=== PATIENT | female | born 1950 ===

== ENCOUNTER → 2019-05-21 | Outpatient (CLI) | payer MEDICARE, OTHER ==
[~2019-05-21] MED LIST: CALC500T6 PO; CITA-145 PO; GABA-547 PO; LACT1CAP6 PO; LEVO75TA73 PO; OMEG-11 PO
[2019-05-21 11:29] LABS: PLATELET COUNT, AUTOMATED 252 K/uL (150-450)
--- NOTE | 2019-05-21 11:44 | EKG ---
FACILITY: PATIENT NAME: RAE GOULD : [id number] MR: [id number] V: [id number] EXAM DATE: ORDERING PHYSICIAN: ROSALINDA BRIAN TECHNOLOGIST: RADHA YI Test Reason : CHEST PAIN Blood Pressure : / mmHG Vent. Rate : 051 BPM Atrial Rate : 051 BPM P-R Int : 160 ms QRS Dur : 080 ms QT Int : 424 ms P-R-T Axes : 045 015 -21 degrees QTc Int : 390 ms Sinus bradycardia Nonspecific ST and T wave abnormality Abnormal ECG No previous ECGs available Referred By: SNEHAL Confirmed By:
== END ==
LOC: LAB 10:56
PROVIDERS: ATTEND Nurse Practitioner Primary Care
DX: R07.9 Chest pain, unspecified (principal)
CPT/HCPCS: 36415; 82040; 82247; 82310; 82374; 82435; 82565; 82947; 84075; 84132; 84155; 84295; 84450; 84460; 84484; 84520; 85025

== ENCOUNTER → 2019-06-11 | Outpatient (CLI) | payer MEDICARE, OTHER ==
[~2019-06-11] MED LIST changes: +CYAN100058 PO
--- NOTE | 2019-06-11 11:38 | RADIOLOGY IMAGING REPORT ---
[place] [facility] [place] Kendra Zayas : 1950 MR: [id number] V: [id number] EXAM DATE: ORDERING PHYSICIAN: TIM WHITAKER TECHNOLOGIST: Location: [facility] - [place] Patient: Kendra Zayas : 1950 Visit/Account:[id number] Date of Sevice: 06/11/2019 Exam type: CHEST PA LAT History: Chest heaviness two weeks ago, follow-up from abnormal EKG Comparison: None. Findings: The lungs are free of acute effusions, infiltrates or edema. This mild increased AP diameter chest w hich can be seen with hyperinflation . On the lateral view there suggestion of a small nodular densi ty projecting in the anterior aspect of the mid thorax. This is not definite seen on the PA view. T his could simply represent superimposed shadow although small nodule not excluded Cardiac silhouette is normal in size. The trachea is in midline. There are mild spondylotic changes of the thoracic s pine. IMPRESSION: 1. There is mild increased AP diameter chest which can be seen with hyperinflation. No evidence of acute pulmonary infiltrates On the lateral view there suggestion of a small nodular density along the anterior aspect of the mid thorax which could represent a small superimposed shadow although small nodule not excluded. Dependi ng upon the degree of clinical concern short-term interval follow-up chest or chest CT may be helpful Report Dictated By: July Link MD at 06/11/2019 11:26 AM Report E-Signed By: July Link MD at 06/11/2019 11:29 AM WSN:[email or web address]
== END ==
LOC: LAB 10:55
PROVIDERS: ATTEND Emergency Medicine
DX: R07.9 Chest pain, unspecified (principal)
CPT/HCPCS: 36415; 71046; 82306; 82607

== ENCOUNTER → 2019-06-18 | Outpatient (CLI) | payer MEDICARE, OTHER ==
--- NOTE | 2019-06-18 14:36 | RADIOLOGY IMAGING REPORT ---
FACILITY: [facility] - [place] PATIENT NAME: Kendra Zayas : 1950 MR: [id number] V: [id number] EXAM DATE: ORDERING PHYSICIAN: TIM WHITAKER TECHNOLOGIST: Location: [facility] Patient: Kendra Zayas : 1950 Visit/Account:[id number] Date of Sevice: 06/18/2019 CHEST PA LAT HISTORY: Abnormal chest x-ray. History of smoking 40 years ago. No recent sickness or complaints at t his time. COMPARISON: 06/11/2019. TECHNIQUE: PA and lateral views of the chest. FINDINGS: PULMONARY/PLEURA: Lungs are clear. Nodular density in the retrosternal space is unchanged. There is n o pneumothorax or pleural effusion. CARDIOMEDIASTINAL: Cardiac and mediastinal silhouettes are within normal limits. BONES/SOFT TISSUES: No acute osseous abnormality. The visible abdomen is normal. IMPRESSION: 1. Persistent nodular density in the retrosternal space may be a calcified granuloma versus vessel on end. More worrisome process is possible, but felt less likely. If patient has remote chest x-rays, s uggest comparison be made to assess for long-term stability. If none are available, follow-up chest x -ray is suggested in 3-6 months to assess for stability. Alternatively, depending on clinical concern , chest CT could be obtained for further evaluation. Report Dictated By: Nathaly Medina at 06/18/2019 2:23 PM Report E-Signed By: Nathaly Medina at 06/18/2019 2:27 PM WSN:[id number]
== END ==
LOC: RAD 12:49
PROVIDERS: ATTEND Emergency Medicine
DX: R93.89 Abnormal findings on diagnostic imaging of other specified body structures (principal)
CPT/HCPCS: 71046

== ENCOUNTER → 2019-06-21 | Outpatient (CLI) | payer MEDICARE, OTHER ==
--- NOTE | 2019-06-21 13:25 | RADIOLOGY IMAGING REPORT ---
FACILITY: [facility] - [place] PATIENT NAME: Kendra Zayas : 1950 MR: [id number] V: [id number] EXAM DATE: ORDERING PHYSICIAN: TIM WHITAKER TECHNOLOGIST: Location: [facility] Patient: Kendra Zayas : 1950 Visit/Account:[id number] Date of Sevice: 06/21/2019 CT CHEST W/O CONTRAST History: 69-year-old female with abnormal density in the retrosternal region noted on recent chest x- ray. Evaluate lungs. Technique: Thin axial CT images were obtained through the chest without the injection of intravenous contrast. Coronal and sagittal reformations were then created. One of the following dose optimization techniques was utilized in the performance of this exam: Autom ated exposure control; adjustment of the mA and/or kV according to the patient's size; or use of an i terative reconstruction technique. Specific details can be referenced in the facility's radiology C T exam operational policy. Comparison: Chest x-ray June 18, 2019 and June 11, 2019. Findings: Lower neck: No supraclavicular lymphadenopathy. Thyroid gland/mediastinum/hilum/lymph nodes:The thyroid gland is normal and there is no mediastinal o r hilar lymphadenopathy. Heart and pericardium: Normal Lungs/pleura: There is no abnormality to explain the retrosternal density noted on the recent chest x -rays. There are couple of tiny foci of groundglass density in the right middle lobe but they are of doubtful clinical significance. There is scarring in the left lower lobe and right posterior costop hrenic sulcus, but no findings of an infiltrate or mass. There is no pleural effusion. Bones/soft tissues:Negative Upper abdomen: Unremarkable. No findings of an adrenal, liver or renal mass. IMPRESSION: 1. Unremarkable CT scan of the chest. In this patient with a chest x-ray showing a retrosternal den sity this density is not seen and there are no lung nodules. There is no lymphadenopathy in the medi astinum or [place]. Report Dictated By: Carroll Shanks MD at 06/21/2019 1:11 PM Report E-Signed By: Carroll Shanks MD at 06/21/2019 1:17 PM WSN:[email or web address]
== END ==
LOC: CT 04:10
PROVIDERS: ATTEND Emergency Medicine
DX: R91.1 Solitary pulmonary nodule (principal)
CPT/HCPCS: 71250